=== PATIENT | male | born 1960 | race Caucasian/White ===

== ENCOUNTER 2021-06-29 14:11 | Emergency (ER) | payer OTHER ==
[2021-06-29 14:25] VITALS: BP 129/75
[2021-06-29 15:01] VITALS: BP 125/69
[2021-06-29 15:31] VITALS: BP 136/79
[2021-06-29 16:02] VITALS: BP 140/69
[2021-06-29] MEDS ORDERED: IBUPROFEN600 MG PO (16:10)
[2021-06-29 16:23] VITALS: BP 140/69
== END 2021-06-29 16:34 | disposition home or self-care (01) | DRG 556 ==
LOC: ED 14:11
DX: M25.561 Pain in right knee (principal); Z98.890 Other specified postprocedural states

== ENCOUNTER 2021-08-08 10:53 | Emergency (ER) | payer OTHER ==
[~2021-08-08] VITALS: Ht 177.8 cm; Wt 166.0 kg
[~2021-08-08 10:53] MED LIST: IBUPROFEN600 MG PO
[2021-08-08 11:08] VITALS: BP 163/106
[2021-08-08] MEDS ORDERED: CIPROFLOXACN500 MG PO (11:22)
[2021-08-08] MEDS ORDERED: DOXYCYCLINE100 MG (11:22)
[2021-08-08] MEDS ORDERED: ACETAMIN500 M2 PO (11:23)
[2021-08-08 11:26] LABS: HEMATOCRIT 43.7 % (39.0-50.0); HEMOGLOBIN 13.6 g/dl (14.0-18.0); IMMATURE GRANULOCYTES 0.3 % (0.0-5.0); MEAN CELL VOLUME 85.2 fL CALC (80.0-100.0); MEAN CORPUSCULAR HGB 26.5 pG CALC (26.0-32.0); MEAN CORPUSCULAR HGB CONC 31.1 g/dL CAL (32.0-36.0); NEUT# 9.12 thou/uL (1.82-7.42); RED BLOOD COUNT 5.13 mill/uL (4.70-6.10); RED CELL DISTRI WIDTH 15.5 % (11.5-15.5)
[2021-08-08 11:31] VITALS: BP 145/89
[2021-08-08 11:35] LABS: GFR FOR AFR.AMER. > 60 ML/MIN (>=60 (CALC)); GFR OTHER RACES > 60 ML/MIN (>=60 (CALC))
[2021-08-08 11:46] LABS: ALBUMIN 4.4 g/dL (3.2-5.0); ALKALINE PHOSPHATASE 71 u/l (38-126); ANION GAP 13 (6-22 (CALC)); BILIRUBIN, TOTAL 0.5 mg/dL (0.0-1.4); BUN 14 mg/dL (9-20); BUN/CREATININE RATIO 17 (12-20 (CALC)); CARBON DIOXIDE 25 mmol/l (22-30); CHLORIDE 104 mmol/l (95-108); CREATININE 0.8 mg/dL (0.7-1.3); GFR FOR AFR.AMER. > 60 ML/MIN (>=60 (CALC)); GFR OTHER RACES > 60 ML/MIN (>=60 (CALC)); POTASSIUM 3.7 mmol/l (3.5-5.1); SGOT/AST 20 u/l (17-59); SODIUM 139 mmol/l (137-146); TOTAL PROTEIN 8.3 g/dL (6.3-8.2)
[2021-08-08 12:31] VITALS: BP 167/99
[2021-08-08] MEDS ORDERED: OMNICEF300 M1 PO (12:59)
[2021-08-08] MEDS ORDERED: ATROPINE SUL1 % OU (12:59)
[2021-08-08 13:01] VITALS: BP 147/89
[2021-08-08 13:31] VITALS: BP 150/94
[2021-08-08 14:08] VITALS: BP 150/94
== END 2021-08-08 14:08 | disposition home or self-care (01) | DRG 125 ==
LOC: ED 10:53
PROVIDERS: Family Medicine
DX: S05.02XA Injury of conjunctiva and corneal abrasion without foreign body, left eye, initial encounter (principal); H00.036 Abscess of eyelid left eye, unspecified eyelid; H10.9 Unspecified conjunctivitis; E66.9 Obesity, unspecified; X58.XXXA Exposure to other specified factors, initial encounter; Z88.0 Allergy status to penicillin
CPT/HCPCS: Q9967